=== PATIENT | female | born 1945 ===

== ENCOUNTER 2022-10-28 12:00 | Inpatient (IN) | payer OTHER ==
[~2022-10-28] VITALS: Ht 157.5 cm; Wt 102.1 kg
[2022-10-28] MEDS ORDERED: COZAAR100 MG PO (12:45)
[2022-10-28] MEDS ORDERED: AMLODI PO (12:46)
[2022-11-03] MEDS ORDERED: LOSARTAN-HCTZ1 EAC2 (10:07)
[2022-11-03] MEDS ORDERED: AMLODIPINE BESYL5 MG (10:07)
[2022-11-06] MEDS ORDERED: AMOX1TAB5 PO (11:13)
[2022-11-06] MEDS ORDERED: PEPCID AC20 MG PO (11:13)
[2022-11-06] MEDS ORDERED: TRAM1TAB98 PO (11:14)
== END 2022-11-06 13:59 | disposition home or self-care (01) | DRG 331 ==
LOC: EDSTATUS 12:00 → ADM 12:00 → SURH 10-30 07:00 → O/R 10-30 08:38 → SURH 10-30 12:00
PROVIDERS: ADMIT Surgery; ATTEND Surgery
PROC: 0DBP4ZZ Excision of Rectum, Percutaneous Endoscopic Approach (ICD-10-PCS; 2022-10-30)
PROC: 07BC4ZZ Excision of Pelvis Lymphatic, Percutaneous Endoscopic Approach (ICD-10-PCS; 2022-10-30)
PROC: 0DJD8ZZ Inspection of Lower Intestinal Tract, Via Natural or Artificial Opening Endoscopic (ICD-10-PCS; 2022-10-30)
PROC: 0DTN4ZZ Resection of Sigmoid Colon, Percutaneous Endoscopic Approach (ICD-10-PCS; principal; 2022-10-30 07:00)
PROC: 02HV33Z Insertion of Infusion Device into Superior Vena Cava, Percutaneous Approach (ICD-10-PCS; 2022-11-04)
DX: C19 Malignant neoplasm of rectosigmoid junction (principal); R50.82 Postprocedural fever; N73.6 Female pelvic peritoneal adhesions (postinfective); R59.0 Localized enlarged lymph nodes; N99.4 Postprocedural pelvic peritoneal adhesions; Z20.822 Contact with and (suspected) exposure to COVID-19; I12.9 Hypertensive chronic kidney disease with stage 1 through stage 4 chronic kidney disease, or unspecified chronic kidney disease; N18.30 Chronic kidney disease, stage 3 unspecified; E66.01 Morbid (severe) obesity due to excess calories; H91.90 Unspecified hearing loss, unspecified ear

== ENCOUNTER 2022-11-21 10:48 | Inpatient (IN) | payer OTHER ==
[~2022-11-21] VITALS: Ht 157.5 cm; Wt 102.1 kg
[~2022-11-21 10:48] MED LIST: AMLODI PO; AMLODIPINE BESYL5 MG; AMOX1TAB5 PO; COZAAR100 MG PO; LOSARTAN-HCTZ1 EAC2; PEPCID AC20 MG PO; TRAM1TAB98 PO
[2022-11-21] MEDS ORDERED: FUSION PLUS CA1 EACH PO (11:19)
[2022-11-21] MEDS ORDERED: ABANEU-SL TABL1 EACH SL (11:19)
== END 2022-12-09 17:14 | disposition home or self-care (01) | DRG 393 ==
LOC: ER 10:48 → MEDI 16:56 → MEDJ 11-23 10:10
PROVIDERS: ADMIT Surgery; ATTEND Surgery
PROC: BW21Y0Z Computerized Tomography (CT Scan) of Abdomen and Pelvis using Other Contrast, Unenhanced and Enhanced (ICD-10-PCS; 2022-11-21)
PROC: 30233N1 Transfusion of Nonautologous Red Blood Cells into Peripheral Vein, Percutaneous Approach (ICD-10-PCS; principal; 2022-11-22)
PROC: 02HV33Z Insertion of Infusion Device into Superior Vena Cava, Percutaneous Approach (ICD-10-PCS; 2022-11-22)
PROC: 3E0436Z Introduction of Nutritional Substance into Central Vein, Percutaneous Approach (ICD-10-PCS; 2022-11-22)
PROC: 8E0ZXY6 Isolation (ICD-10-PCS; 2022-11-23)
PROC: 0W9G30Z Drainage of Peritoneal Cavity with Drainage Device, Percutaneous Approach (ICD-10-PCS; 2022-11-24)
PROC: BW21Y0Z Computerized Tomography (CT Scan) of Abdomen and Pelvis using Other Contrast, Unenhanced and Enhanced (ICD-10-PCS; 2022-11-28)
PROC: BW21Y0Z Computerized Tomography (CT Scan) of Abdomen and Pelvis using Other Contrast, Unenhanced and Enhanced (ICD-10-PCS; 2022-12-05)
DX: K91.89 Other postprocedural complications and disorders of digestive system (principal); K65.1 Peritoneal abscess; T81.32XA Disruption of internal operation (surgical) wound, not elsewhere classified, initial encounter; A04.72 Enterocolitis due to Clostridium difficile, not specified as recurrent; K92.1 Melena; B37.49 Other urogenital candidiasis; C18.2 Malignant neoplasm of ascending colon; Z68.41 Body mass index [BMI] 40.0-44.9, adult; D50.0 Iron deficiency anemia secondary to blood loss (chronic); D72.828 Other elevated white blood cell count; R50.82 Postprocedural fever; E66.01 Morbid (severe) obesity due to excess calories; B37.2 Candidiasis of skin and nail; B96.29 Other Escherichia coli [E. coli] as the cause of diseases classified elsewhere; B96.5 Pseudomonas (aeruginosa) (mallei) (pseudomallei) as the cause of diseases classified elsewhere; B96.1 Klebsiella pneumoniae [K. pneumoniae] as the cause of diseases classified elsewhere; B95.2 Enterococcus as the cause of diseases classified elsewhere; B95.7 Other staphylococcus as the cause of diseases classified elsewhere; B96.89 Other specified bacterial agents as the cause of diseases classified elsewhere; I12.9 Hypertensive chronic kidney disease with stage 1 through stage 4 chronic kidney disease, or unspecified chronic kidney disease; N18.30 Chronic kidney disease, stage 3 unspecified; Z20.822 Contact with and (suspected) exposure to COVID-19; Z87.891 Personal history of nicotine dependence

== ENCOUNTER 2022-12-26 09:30 | Emergency (ER) | payer OTHER ==
[~2022-12-26] VITALS: Ht 167.6 cm; Wt 104.3 kg
[~2022-12-26 09:30] MED LIST changes: +ABANEU-SL TABL1 EACH SL; +FUSION PLUS CA1 EACH PO
[2022-12-26] MEDS ORDERED: LOSARTAN-HCTZ1 EAC2 PO (09:48)
== END 2022-12-27 01:26 | disposition home or self-care (01) ==
LOC: ER 09:30
DX: T81.41XA Infection following a procedure, superficial incisional surgical site, initial encounter (principal); C18.9 Malignant neoplasm of colon, unspecified; I10 Essential (primary) hypertension; K63.2 Fistula of intestine